=== PATIENT | female | born 1985 | race Caucasian/White ===

== ENCOUNTER 2018-01-09 20:53 | Emergency (ER) | payer MEDICAID, OTHER ==
[2018-01-09 20:53] VITALS: BMI 28.3
[2018-01-09 21:39] VITALS: BP 157/74; PULSE 95; RESP 20; TEMP 98.2; O2SAT 100
[2018-01-09] MEDS ORDERED: Promethazine/Cod 6.25mg-10mg/5ml Syr UD PO ONE (21:51)
[2018-01-09] MEDS ORDERED: Promethazine/Cod 6.25mg-10mg/5ml Syr UD ONE (21:52)
--- NOTE | 2018-01-09 22:20 | C.PDOC ---
History Of Present Illness 32 year old female presents to the ED c/o productive cough for the past week. Patient reports she went to see her PMD who prescribed her antibiotics and cough medication. Patient reports her cough has improved but now returned , persistent and dry. Patient states she works in a cold environment which she thinks is contributing to the worsening of her symptoms. Patient denies fever, chills, nausea, vomit, CP, SOB. Chief Complaint (Nursing): Cough, Cold, Congestion History Per: Patient History/Exam Limitations: no limitations Onset/Duration Of Symptoms: Days Current Symptoms Are (Timing): Still Present Location Of Pain: Throat Sick Contacts (Context): None Associated Symptoms: Cough. denies: Fever, Sinus Drainage, Nasal Congestion Ear Symptoms: Bilateral: None Recent travel outside of the [place]: No Additional History Per: Patient Past Medical History Reviewed: Historical Data, Nursing Documentation, Vital Signs Vital Signs: Last Vital Signs Temp 98.2 F 01/09/18 21:25 Pulse 95 H 01/09/18 21:25 Resp 20 01/09/18 22:41 BP 157/74 H 01/09/18 21:25 Pulse Ox 100 01/10/18 01:31 - Medical History PMH: Asthma Denies: Chronic Kidney Disease Surgical History: No Surg Hx - [facility] Procedures ESOPHAGOGASTRODUODENOSCOPY [EGD] W/CLOSED BIOPSY (08/21/14) Family History: States: Unknown Family Hx - Social History Hx Tobacco Use: No Hx Alcohol Use: Yes Hx Substance Use: No - Immunization History Hx Tetanus Toxoid Vaccination: No Hx Influenza Vaccination: No Hx Pneumococcal Vaccination: No Review Of Systems Constitutional: Negative for: Fever, Chills ENT: Negative for: Nose Discharge, Nose Congestion, Throat Pain, Throat Swelling Cardiovascular: Negative for: Chest Pain, Palpitations Respiratory: Positive for: Cough, Sputum. Negative for: Shortness of Breath Gastrointestinal: Negative for: Nausea, Vomiting Skin: Negative for: Rash Physical Exam - Physical Exam Appears: Non-toxic, No Acute Distress Skin: Normal Color, Warm, Dry Head: Atraumatic, Normacephalic Eye(s): bilateral: Normal Inspection Ear(s): Bilateral: Normal Nose: No Discharge Oral Mucosa: Moist Throat: Normal, No Erythema, No Exudate Neck: Normal ROM, Supple Chest: Symmetrical Respiratory: Normal Breath Sounds, No Rales, No Rhonchi, No Wheezing Extremity: Normal ROM, No Tenderness, No Swelling Neurological/Psych: Oriented x3, Normal Speech Gait: Steady ED Course And Treatment O2 Sat by Pulse Oximetry: 100 (ON RA) Pulse Ox Interpretation: Normal Progress Note: Plan: - Phenergan/codeine 10 ml PO. On reassessment, patient is resting comfortably, and is in no acute distress. Patient was instructed to follow up with physician/clinic in 1-2 days for further evaluation. Disposition Counseled Patient/Family Regarding: Diagnosis, Need For Followup, Rx Given - Disposition Referrals: [facility] [Outside] Disposition: HOME/ ROUTINE Disposition Time: 22:12 Condition: STABLE Additional Instructions: Please follow up with PMD LORY GALEAS RETURN TO ER IF WORSE Prescriptions: Promethazine/Codeine [Codeine/Promethazine 10 MG/5 Ml-6.25 MG/5 Ml] 5 ml PO TID #100 ml Instructions: Viral Upper Respiratory Infection, Adult (DC) Forms: [employer] (Taiwanese), Work Excuse Print Language: CROATIAN - Clinical Impression Clinical Impression: Upper respiratory infection, Upper respiratory infection - 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 - Scribe Statement The provider has reviewed the documentation as recorded by the Scribe Reji Durbin All medical record entries made by the Shiraibe were at my direction and personally dictated by me. I have reviewed the chart and agree that the record accurately reflects my personal performance of the history, physical exam, medical decision making, and the department course for this patient. I have also personally directed, reviewed, and agree with the discharge instructions and disposition.
== END 2018-01-09 22:41 | disposition home or self-care (01) ==
LOC: C.ER 20:53
DX: J06.9 Acute upper respiratory infection, unspecified (principal)

== ENCOUNTER 2018-08-12 10:27 | Emergency (ER) | payer MEDICAID ==
[2018-08-12 10:27] VITALS: BMI 28.3
[2018-08-12 10:34] VITALS: RESP 18; O2SAT 100
--- NOTE | 2018-08-12 11:00 | C.PDOC ---
History Of Present Illness 33 y/o female with no significant PMH presents to the ED c/o neck and upper back pain x 2 weeks. Describes the pain as achey, worse with movement and lying too long in one position such as sleeping. 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 Took 1 tylenol yesterday without relief. Pt states she thinks she may be working too much lately. Currently menstruating. Denies fevers, chills, headache, SOB, chest pain, numbness, weakness, paresthesias, or any other associated complaints. Time Seen by Provider: 08/12/18 11:00 Chief Complaint (Nursing): Back Pain History Per: Patient History/Exam Limitations: no limitations Past Medical History Reviewed: Historical Data, Nursing Documentation, Vital Signs Vital Signs: Last Vital Signs Temp 97.8 F 08/12/18 10:29 Pulse 82 08/12/18 10:29 Resp 18 08/12/18 10:29 BP 143/77 08/12/18 10:29 Pulse Ox 100 08/12/18 10:29 - Medical History PMH: Asthma Denies: Chronic Kidney Disease - [facility] Procedures ESOPHAGOGASTRODUODENOSCOPY [EGD] W/CLOSED BIOPSY (08/21/14) Family History: States: Unknown Family Hx - Social History Hx Tobacco Use: No Hx Alcohol Use: No Hx Substance Use: No - Immunization History Hx Tetanus Toxoid Vaccination: (unk) Hx Influenza Vaccination: No Hx Pneumococcal Vaccination: No Review Of Systems Except As Marked, All Systems Reviewed And Found Negative. Constitutional: Negative for: Fever, Chills Eyes: Negative for: Vision Change ENT: Negative for: Nose Congestion Cardiovascular: Negative for: Chest Pain, Palpitations Respiratory: Negative for: Cough, Shortness of Breath Gastrointestinal: Negative for: Nausea, Vomiting, Abdominal Pain Musculoskeletal: Positive for: Neck Pain, Back Pain. Negative for: Arm Pain Skin: Negative for: Rash Neurological: Negative for: Weakness, Numbness, Headache, Dizziness Physical Exam - Physical Exam Appears: Well, Non-toxic, No Acute Distress Skin: Normal Color, Warm, Dry Head: Atraumatic, Normacephalic, No Tenderness Eye(s): bilateral: Normal Inspection, PERRL, EOMI Ear(s): Bilateral: Normal Nose: Normal Throat: Normal Neck: Normal ROM, No Decreased ROM, No Midline Cervical Tenderness, Paracervical Tenderness (bilateral, L>R) Lymphatic: Normal Exam Chest: Symmetrical, No Deformity, No Tenderness Cardiovascular: Rhythm Regular Respiratory: Normal Breath Sounds Back: Normal Inspection, No CVA Tenderness, No Vertebral Tenderness, No De creased ROM, Paraspinal Tenderness (left thoracic ) Extremity: Normal ROM Extremity: Bilateral: Atraumatic, No Pedal Edema, Normal Color And Temperature, Normal ROM Pulses: Left Radial: Normal, Right Radial: Normal Neurological/Psych: Oriented x3, Normal Speech, Normal Cranial Nerves, Normal Motor, Normal Sensation Gait: Steady ED Course And Treatment - Laboratory Results Urine POC: Negative O2 Sat by Pulse Oximetry: 100 Medical Decision Making Medical Decision Making: Initial Plan: * POC urine preg * Valium * Lidoderm patch * Toradol * Reassess and Disposition Patient reports significant decreased pain after medications, asking for discharge home. Will give prescriptions for naproxen and flexeril and advise followup with PMD. Pt states she will followup tomorrow. Diagnostic testing results and plan of care discussed with patient. Strict instructions given regarding prescription use, importance of followup, and signs/symptoms to return to ER including fever, headache, vision changes, dizziness, or any other new/worsening symptoms. Pt verbalized understanding of discussion. Patient is A&Ox3, ambulating with steady gait, with vital signs stable for discharge. Disposition - Disposition Referrals: [facility] at [facility] [Outside] Disposition: HOME/ ROUTINE Disposition Time: 12:30 Condition: IMPROVED Additional Instructions: Flexeril every 8 hours as needed for muscle spasm Naproxen daily with food as needed for pain Take lidoderm patch off in 12 hours Followup with primary doctor within 2 days Return to ER with any new/worsening symptoms Prescriptions: Cyclobenzaprine [Flexeril] 5 mg PO Q8H #12 tab Naproxen [Naprosyn] 500 mg PO DAILY PRN #14 tablet PRN Reason: Pain, Moderate (4-7) Instructions: Muscle Spasms (DC) Forms: [facility] Discharge Inst [facility], [facility] ([employer]), Work Excuse - Clinical Impression Clinical Impression: Muscle spasm
[2018-08-12 11:47] VITALS: BP 109/71; PULSE 72; TEMP 98.1
[2018-08-12] MEDS: Lidocaine 5% Patch TD STA (12:44)
[2018-08-12] MEDS ORDERED: Lidocaine 5% Patch TD ONE (12:45)
== END 2018-08-12 12:44 | disposition home or self-care (01) ==
LOC: C.ER 10:27
DX: M62.838 Other muscle spasm (principal)
CPT/HCPCS: 81025; 96372; 99283; J1885